=== PATIENT | female | born 1980 | race Two or more races ===

== ENCOUNTER 2016-11-03 20:10 | Emergency (ER) | payer OTHER ==
[~2016-11-03] VITALS: Ht 162.6 cm; Wt 58.1 kg
[~2016-11-03 20:10] MED LIST: LEVOTHYROXINE; METFORMIN; SUMATRIPTAN
[2016-11-03] MEDS ORDERED: SUMA50TA PO (20:53)
[2016-11-03] MEDS ORDERED: PROCHLORPERAZINE EDISYLATE 10 MG/2 ML VIAL IV ONE (21:15)
[2016-11-03] MEDS ORDERED: KETOROLAC TROMETHAMINE 15 MG INJ IVP ONE (21:15)
[2016-11-03] MEDS ORDERED: ACETAMINOPHEN 325 MG TABLET PO ONE (21:15)
[2016-11-03] MEDS ORDERED: IV NORMAL SALINE 1000 ML BAG IV ONE (21:15)
[2016-11-03] MEDS ORDERED: PROCHLORPERAZINE EDISYLATE 10 MG/2 ML VIAL ONE (21:31)
[2016-11-03] MEDS ORDERED: ACETAMINOPHEN 325 MG TABLET ONE (21:32)
[2016-11-03] MEDS ORDERED: KETOROLAC TROMETHAMINE 15 MG INJ ONE (21:32)
[2016-11-03 22:50] VITALS: BP 110/76
== END 2016-11-03 22:50 | disposition home or self-care (01) ==
LOC: ER 20:16
DX: G43.909 Migraine, unspecified, not intractable, without status migrainosus (principal); Z88.6 Allergy status to analgesic agent
CPT/HCPCS: 36415; 84703; A4663; J0780; J1885; J7030

== ENCOUNTER 2017-05-19 18:58 | Emergency (ER) | payer OTHER ==
[~2017-05-19] VITALS: Ht 160 cm; Wt 54.9 kg
[~2017-05-19 18:58] MED LIST changes: +SUMA50TA PO
[2017-05-19] MEDS: diphenhydrAMINE 50 MG/1 ML VIAL IM ONE (19:36)
[2017-05-19] MEDS: METOCLOPRAMIDE HCL 10 MG/2 ML VIAL IM ONE (19:36)
[2017-05-19] MEDS ORDERED: diphenhydrAMINE 50 MG/1 ML VIAL ONE (19:45)
[2017-05-19] MEDS ORDERED: METOCLOPRAMIDE HCL 10 MG/2 ML VIAL ONE (19:46)
--- NOTE | 2017-05-19 20:35 | NUR ---
Patient discharged to home in stable conditon. Written and verbal after care instructions given. Patient verbalizes understanding of instructions.
== END 2017-05-19 20:36 | disposition home or self-care (01) ==
LOC: ER 19:00
DX: G43.909 Migraine, unspecified, not intractable, without status migrainosus (principal); E03.9 Hypothyroidism, unspecified; E11.9 Type 2 diabetes mellitus without complications; D64.9 Anemia, unspecified; Z79.84 Long term (current) use of oral hypoglycemic drugs; F41.9 Anxiety disorder, unspecified
CPT/HCPCS: 96372 ×2; 99284; A4663; J1200; J2765

== ENCOUNTER 2018-06-24 09:24 | Emergency (ER) | payer OTHER ==
[~2018-06-24] VITALS: Ht 160 cm; Wt 57.6 kg
[2018-06-24 09:55] LABS: BASOPHILS # (AUTO) 0.1 K/uL (0.0-8.0); BASOPHILS % (AUTO) 1.3 % (0.0-2.0); EOSINOPHILS # (AUTO) 0.1 K/uL (0.0-0.7); EOSINOPHILS % (AUTO) 2.1 % (0.0-7.0); HEMATOCRIT 33.1 % (31.2-41.9); HEMOGLOBIN 10.6 g/dL (10.9-14.3); LYMPHOCYTES % (AUTO) 29.6 % (20.5-51.5); MEAN CORPUSCULAR HEMOGLOBIN 19.3 uug (24.7-32.8); MEAN CORPUSCULAR HGB CONC 32 g/dL (32.3-35.6); MEAN CORPUSCULAR VOLUME 60.2 fL (75.5-95.3); MONOCYTES # (AUTO) 0.6 K/uL (2.0-10.0); PLATELET COUNT (AUTO) 287 K/uL (179-408); WHITE BLOOD COUNT (AUTO) 6.9 K/uL (3.8-11.8)
[2018-06-24 10:10] LABS: CREATININE 0.8 mg/dL (0.6-1.3); POTASSIUM 3.7 mmol/L (3.5-5.1)
[2018-06-24 10:14] LABS: EOSINOPHILS % (MANUAL) 3 % (0-8); LYMPHOCYTES % (MANUAL) 30 % (20-40); MONOCYTES % (MANUAL) 8 % (2-10); NEUTROPHILS % (MANUAL) 59 % (42-75)
[2018-06-24] MEDS ORDERED: LORAZEPAM 1 MG TABLET ONE (10:36)
--- NOTE | 2018-06-24 10:37 | NUR ---
Patient discharged to home in stable conditon. Written and verbal after care instructions given. Patient verbalizes understanding of instructions.pt walks in steady gait. pt not driving. pt accompanied by so.
[2018-06-24] MEDS ORDERED: LORAZEPAM 0.5 MG TABLET PO ONE (10:45)
== END 2018-06-24 10:41 | disposition home or self-care (01) ==
LOC: ER 09:24
DX: F41.8 Other specified anxiety disorders (principal); E11.9 Type 2 diabetes mellitus without complications; E03.9 Hypothyroidism, unspecified; Z88.8 Allergy status to other drugs, medicaments and biological substances; Z79.899 Other long term (current) drug therapy
CPT/HCPCS: 36415; 70030-TC; 85025; 93005; A4663

== ENCOUNTER 2018-12-18 10:01 | Emergency (ER) | payer OTHER ==
[~2018-12-18] VITALS: Ht 160 cm; Wt 57.6 kg
[2018-12-18] MEDS ORDERED: HYDROMORPHONE 2 MG/1 ML DISP.SYRIN ONE (10:24)
[2018-12-18] MEDS ORDERED: ONDANSETRON 4 MG/2 ML VIAL ONE (10:24)
[2018-12-18] MEDS ORDERED: ONDANSETRON 4 MG/2 ML VIAL IV ONE (10:30)
[2018-12-18] MEDS ORDERED: HYDROMORPHONE 1 MG/1 ML DISP.SYRIN IV ONE (10:30)
[2018-12-18] MEDS ORDERED: IV NORMAL SALINE 1000 ML BAG IV ONE (10:30)
--- NOTE | 2018-12-18 11:17 | NUR ---
Patient discharged to home in stable conditon. Written and verbal after care instructions given. Patient verbalizes understanding of instructions.
--- NOTE | 2018-12-18 11:17 | NUR ---
IV removed. Catheter intact and site benign. Pressure and 4x4 gauze applied to site. No bleeding noted.
[2018-12-18 11:18] VITALS: BP 116/71
== END 2018-12-18 11:19 | disposition home or self-care (01) ==
LOC: ER 10:03
DX: G43.909 Migraine, unspecified, not intractable, without status migrainosus (principal); E11.9 Type 2 diabetes mellitus without complications; E03.9 Hypothyroidism, unspecified; Z88.8 Allergy status to other drugs, medicaments and biological substances; Z86.2 Personal history of diseases of the blood and blood-forming organs and certain disorders involving the immune mechanism; Z79.899 Other long term (current) drug therapy
CPT/HCPCS: 96361; 96374; 96375; 99283; J1170; J2405; A4663; J7030

== ENCOUNTER 2020-11-26 09:30 | Emergency (ER) | payer OTHER ==
[~2020-11-26] VITALS: Ht 160 cm; Wt 65.8 kg
[2020-11-26] MEDS ORDERED: ONDANSETRON 4 MG/2 ML VIAL IV ONE ×2 (09:45→10:30)
[2020-11-26] MEDS ORDERED: IV NORMAL SALINE 1000 ML BAG IV ONE ×2 (09:45→10:30)
--- NOTE | 2020-11-26 09:46 | NUR ---
[facility] WAS ALREADY NOTIFIED OF ER ORDER.
[2020-11-26] MEDS ORDERED: LEVO150T8 PO (09:48)
[2020-11-26] MEDS ORDERED: [UNRECOGNIZED DRUG - OTHER] PO (09:48)
[2020-11-26] MEDS ORDERED: ESTRADIOL PO (09:48)
[2020-11-26] MEDS ORDERED: [UNRECOGNIZED DRUG - OTHER] PO (09:48)
[2020-11-26] MEDS ORDERED: ONDANSETRON 4 MG/2 ML VIAL ONE ×2 (09:58→10:25)
[2020-11-26 09:59] LABS: BASOPHILS # (AUTO) 0.1 K/uL (0.0-8.0); BASOPHILS % (AUTO) 0.6 % (0.0-2.0); EOSINOPHILS # (AUTO) 0.3 K/uL (0.0-0.7); EOSINOPHILS % (AUTO) 1.7 % (0.0-7.0); HEMATOCRIT 33.6 % (31.2-41.9); HEMOGLOBIN 10.3 g/dL (10.9-14.3); LYMPHOCYTES # (AUTO) 3.1 K/uL (20.0-40.0); LYMPHOCYTES % (AUTO) 17.3 % (20.5-51.5); MEAN CORPUSCULAR HEMOGLOBIN 18.6 uug (24.7-32.8); MEAN CORPUSCULAR HGB CONC 31 g/dL (32.3-35.6); MEAN CORPUSCULAR VOLUME 60.9 fL (75.5-95.3); MONOCYTES # (AUTO) 1.2 K/uL (2.0-10.0); MONOCYTES % (AUTO) 6.8 % (0.0-11.0); NEUTROPHILS # (AUTO) 13.4 K/uL (1.8-8.9); NEUTROPHILS % (AUTO) 73.6 % (38.5-71.5); PLATELET COUNT (AUTO) 294 K/uL (179-408); RED BLOOD CELL COUNT(AUTO) 5.51 MIL/uL (3.63-4.92); WHITE BLOOD COUNT (AUTO) 18.2 K/uL (3.8-11.8)
[2020-11-26 10:04] LABS: CREATININE 0.7 mg/dL (0.6-1.3); POTASSIUM 3.5 mmol/L (3.5-5.1)
[2020-11-26 10:10] LABS: BILIRUBIN,DIRECT 0.1 mg/dL (0.0-0.2); BILIRUBIN,TOTAL 0.4 mg/dL (0.2-1.0); TOTAL PROTEIN, SERUM 7.1 g/dL (6.4-8.2)
--- NOTE | 2020-11-26 10:12 | NUR ---
PATIENT WAS SEEN BY . IV PLACED, MEDS GIVEN. PATIENT STATES SHE FEELS "BETTER SLOWLY". NO FURTHER VOMITING. STATES WILL GIVE A URINE SAMPLE SOON " I HAVE SOME URINE:
--- NOTE | 2020-11-26 10:23 | NUR ---
PATIENT STATES NAUSEA HAS RETURNED. DR BRAY WAS AT BEDSIDE SPEAKING TO HER. MEDS GIVEN ORDERED.
[2020-11-26] MEDS ORDERED: MAG HYDROX/AL HYDROX/SIMETH 30 ML LIQUID UDC PO ONE (10:45)
[2020-11-26] MEDS ORDERED: MAG HYDROX/AL HYDROX/SIMETH 30 ML LIQUID UDC ONE (10:45)
--- NOTE | 2020-11-26 11:00 | NUR ---
urine sent to lab
[2020-11-26 11:03] LABS: *BILIRUBIN,URIN NEGATIVE (NEGATIVE); *CLARITY,URINE CLEAR (CLEAR); *COLOR,URINE YELLOW (YELLOW); *KETONES,URINE NEGATIVE (NEGATIVE); *UROBILINOGEN,URINE 0.2 E.U./dl (NORMAL); LEUKOCYTE ESTERASE ,URINE NEGATIVE (NEGATIVE); NITRITE, URINE NEGATIVE (NEGATIVE); UGLUCOSE NEGATIVE (NEGATIVE)
[2020-11-26 11:04] LABS: *BLOOD, URINE TRACE (NEGATIVE)
[2020-11-26] MEDS ORDERED: ONDA4TAB11 PO (11:21)
--- NOTE | 2020-11-26 11:28 | NUR ---
IV removed. Catheter intact and site benign. Pressure and 4x4 gauze applied to site. No bleeding noted.
--- NOTE | 2020-11-26 11:29 | NUR ---
DC, RX AND FOLLOW UP INSTRUCTIONS GIVEN AND EXPLAINED TO PATIENT WHO STATES SHE UNDERSTANDS ALL INSTRUCTIONS
[2020-11-26 11:43] VITALS: BP 129/74
[2020-11-26 14:20] LABS: BACTERIA,URINE FEW /HPF (NONE SEEN); RBC,URINE 0-3 /HPF (0-3); WBC,URINE 0-3 /HPF (0-3)
[2020-11-26 14:21] LABS: SQUAMOUS EPITHELIAL CELL,UR MODERATE /HPF (NONE SEEN)
[2020-11-26 18:49] LABS: BASOPHILS % (MANUAL) 0 % (0-2); EOSINOPHILS % (MANUAL) 0 % (0-8); LYMPHOCYTES % (MANUAL) 27 % (20-40); MONOCYTES % (MANUAL) 7 % (2-10); NEUTROPHILS % (MANUAL) 66 % (42-75)
== END 2020-11-26 11:43 | disposition home or self-care (01) ==
LOC: ER 09:30
DX: O21.9 Vomiting of pregnancy, unspecified (principal); Z3A.01 Less than 8 weeks gestation of pregnancy; O99.281 Endocrine, nutritional and metabolic diseases complicating pregnancy, first trimester; G43.909 Migraine, unspecified, not intractable, without status migrainosus; E03.9 Hypothyroidism, unspecified; O24.311 Unspecified pre-existing diabetes mellitus in pregnancy, first trimester; E11.9 Type 2 diabetes mellitus without complications
CPT/HCPCS: 36415; 76856; 80048; 80076; 81001; 85007; 85025; 96361; 96374; 99284; J2405 ×2; 70030-TC; A4663; J7030